=== PATIENT | male | born 1945 | race Caucasian/White ===

== ENCOUNTER 2024-12-29 12:55 | Emergency (ER) | payer BC, MEDICARE ==
[~2024-12-29] VITALS: Ht 180.3 cm; Wt 84.0 kg
[2024-12-29 12:59] VITALS: O2SAT 99
[2024-12-29] MEDS: SODIUM CHLORIDE 0.9% 1,000 ML IV ONE (13:39)
[2024-12-29] MEDS: ONDANSETRON HCL 4MG/2ML INJ IV STA (13:39)
[2024-12-29] MEDS: LOPERAMIDE HCL 2MG CAPSULE PO ONE (14:06)
[2024-12-29 15:22] LABS: HEMATOCRIT. 41.2 % (42.0-52.0); HEMOGLOBIN. 13.6 g/dL (14.0-18.0); MEAN CORPUSCULAR HEMOGLOBIN 31.3 pg (28.0-32.0); MEAN CORPUSCULAR HGB CONC 33.1 g/dL (31.0-37.0); MEAN CORPUSCULAR VOLUME 94.6 fL (80.0-94.0); MEAN PLATELET VOLUME 10.5 fl (7.4-10.4); PLATELET 84 x1000/uL (130-400); RED BLOOD CELL COUNT 4.36 mill/uL (4.7-6.1); RED CELL DISTRIBUTION WIDTH 14.5 % (11.6-14.6); WHITE BLOOD COUNT 15.6 x1000/uL (4.5-11.0)
[2024-12-29 15:23] LABS: DIFFERENTIAL COMMENT 1
[2024-12-29 15:33] LABS: CHLORIDE 102 mEq/L (98-107); POTASSIUM 4.2 mEq/L (3.5-5.1); SODIUM 137 mEq/L (136-145)
[2024-12-29 15:34] LABS: CALCIUM 8.9 mg/dL (8.7-10.4); CARBON DIOXIDE 25 mEq/L (21-32)
[2024-12-29 15:35] LABS: INR 1.2; PROTHROMBIN TIME 12.8 sec (9.6-11.0)
[2024-12-29 15:39] LABS: GLUCOSE 94 mg/dL (70-105); UREA NITROGEN BLOOD 12 mg/dL (9-23)
[2024-12-29 15:51] LABS: TROPONIN I HIGH SENSITIVITY < 4 ng/L (3.0-53)
[2024-12-29 16:01] LABS: PLATELET ESTIMATE DECREASED
[2024-12-29] MEDS: IOHEXOL-300 100 ML BOTTLE ONE (16:53)
[2024-12-29] MEDS: METOCLOPRAMIDE HCL 10MG/2ML VIAL IV ONE (17:16)
[2024-12-29] MEDS: DIPHENHYDRAMINE 50MG/ML VIAL IV ONE (17:16)
[2024-12-29 17:35] LABS: CLARITY URINE CLEAR (CLEAR); COLOR URINE YELLOW (YELLOW); GLUCOSE URINE NEGATIVE (NEGATIVE); KETONES URINE 2+ (NEGATIVE); LEUKOCYTE ESTERASE URINE NEGATIVE (NEGATIVE); NITRITE URINE NEGATIVE (NEGATIVE); OCCULT BLOOD URINE TRACE (NEGATIVE); PROTEIN URINE 1+ (NEGATIVE); SPECIFIC GRAVITY URINE 1.049 (1.005-1.030); UROBILINOGEN URINE 0.2 E.U./dL (0.2-1.0)
[2024-12-29] MEDS ORDERED: ONDA-239 PO (18:09)
[2024-12-29 18:15] LABS: RBC URINE 0-2 /hpf (0-2); SQUAMOUS EPITHELIAL CELL URINE RARE /lpf (RARE/1+); WBC URINE 0-2 /hpf (0-2)
[2024-12-29 18:16] LABS: BACTERIA URINE 2+
[2024-12-29 18:27] LABS: ALANINE AMINOTRANSFERASE 11 IU/L (10-49); ALBUMIN 4.1 g/dL (3.2-4.8); ASPARTATE AMINOTRANSFERASE 19 IU/L (<34); BILIRUBIN DIRECT 0.2 mg/dL (<=3.0); BILIRUBIN TOTAL 0.6 mg/dL (0.1-1.0); PROTEIN TOTAL 7.5 g/dL (6.0-8.3)
[2024-12-29 18:35] VITALS: BP 150/66; PULSE 92; RESP 16; TEMP 36; O2SAT 95
[2024-12-30] MEDS ORDERED: IOHEXOL-300 100 ML BOTTLE ONE (00:22)
== END 2024-12-29 18:50 | disposition home or self-care (01) ==
LOC: ER 13:09
DX: K52.9 Noninfective gastroenteritis and colitis, unspecified (principal); E78.00 Pure hypercholesterolemia, unspecified; Z88.5 Allergy status to narcotic agent
CPT/HCPCS: 80076; 80048; 81003; 83605; 83690; 85025; 85610; 87040; 87086; 84484; 36415; 84145; 71045; 74177; 93005; 96361; 96374; 96375; 99285; Q9967; J1200; J2765; J2405; J7030; Z7610